=== PATIENT | female | born 1955 | race African-American/Black ===

== ENCOUNTER 2017-03-11 01:41 | Emergency (ER) | payer MEDICARE, MEDICAID ==
[~2017-03-11] VITALS: Ht 165.1 cm; Wt 100.0 kg
[~2017-03-11 01:41] MED LIST: ADLT ASA LOW81 MG PO; ALDACTONE25 MG PO; ALPRAZOLAM0.5 M1 PO; AMLODIPINE BESYL5 MG PO; AMOXICILLIN500 MG PO; ARTHROTEC 75 PO; ATIVAN0.5 MG PO; BENICAR20 MG PO; BUMETANIDE0.5 MG PO; DUONEB IN; FLEXERIL OR; FUROSEMIDE20 MG OR; GABAPENTIN100 MG PO; HYDROCHLOROT12.5 MG PO; HYDROCO/APAP1 TA9 PO; ISOSORB MONO10 MG OR; LISINOP/HCTZ1 TA1 OR; LISINOP/HCTZ1 TA2 PO; LISINOPRIL20 MG PO; MECLIZINE12.5 M1 PO; METFORMIN500 MG PO; METO50TA52 PO; METOPROL TAR50 MG OR; NAPROSYN500 MG OR; NITROSTAT0.4 MG SL; PRAVASTATIN40 MG PO; PREMARIN0.625 MG PO; PROAIR HFA IN; SINGULAIR PO; SINGULAIR10 MG PO; THEO-24300 MG PO; VENTOLIN HFA IN; VICODIN1 TAB PO; XANAX0.5 MG PO
[2017-03-11] MEDS ORDERED: NAPROSYN500 MG PO (03:01)
[2017-03-11 03:05] VITALS: BP 140/83
[2017-03-12] MEDS ORDERED: ESTRADIOL0.5 MG PO (09:43)
[2017-03-12] MEDS ORDERED: METRONIDAZOL0.75 % VA (09:43)
[2017-03-12] MEDS ORDERED: LOPRESSOR 550 MG/TAB PO (09:44)
[2017-03-12] MEDS ORDERED: ALPRAZOLAM1 MG PO (09:45)
[2017-03-12] MEDS ORDERED: HYDROMORPHON8 MG PO (09:46)
[2017-03-12] MEDS ORDERED: FLEXERIL5 M1 PO (09:47)
[2017-03-12] MEDS ORDERED: MELOXICAM7.5 MG PO (09:47)
[2017-03-12] MEDS ORDERED: DEMADEX20 MG PO (09:48)
[2017-03-12] MEDS ORDERED: OMEPRAZOLE20 M1 PO (09:49)
[2017-03-12] MEDS ORDERED: DICLOFENAC SODI75 M1 PO (10:05)
[2017-03-12] MEDS ORDERED: THEOCHRON PO (10:06)
[2017-03-12] MEDS ORDERED: SYMBICORT1 AE1 IN (10:07)
== END 2017-03-11 03:15 | disposition home or self-care (01) ==
LOC: ED 01:41
DX: S83.92XA Sprain of unspecified site of left knee, initial encounter (principal); S93.402A Sprain of unspecified ligament of left ankle, initial encounter; W17.2XXA Fall into hole, initial encounter; X50.1XXA Overexertion from prolonged static or awkward postures, initial encounter; Y93.89 Activity, other specified; Y92.481 Parking lot as the place of occurrence of the external cause

== ENCOUNTER 2017-03-12 08:59 | Emergency (ER) | payer MEDICARE, MEDICAID ==
[~2017-03-12] VITALS: Ht 165.1 cm; Wt 105.0 kg
[~2017-03-12 08:59] MED LIST changes: +NAPROSYN500 MG PO
[2017-03-12] MEDS ORDERED: METRONIDAZOL0.75 % VA (09:43)
[2017-03-12] MEDS ORDERED: ESTRADIOL0.5 MG PO (09:43)
[2017-03-12] MEDS ORDERED: LOPRESSOR 550 MG/TAB PO (09:44)
[2017-03-12] MEDS ORDERED: ALPRAZOLAM1 MG PO (09:45)
[2017-03-12] MEDS ORDERED: HYDROMORPHON8 MG PO (09:46)
[2017-03-12] MEDS ORDERED: MELOXICAM7.5 MG PO (09:47)
[2017-03-12] MEDS ORDERED: FLEXERIL5 M1 PO (09:47)
[2017-03-12] MEDS ORDERED: DEMADEX20 MG PO (09:48)
[2017-03-12] MEDS ORDERED: OMEPRAZOLE20 M1 PO (09:49)
[2017-03-12 10:00] VITALS: BP 135/76
[2017-03-12] MEDS ORDERED: DICLOFENAC SODI75 M1 PO (10:05)
[2017-03-12] MEDS ORDERED: THEOCHRON PO (10:06)
[2017-03-12] MEDS ORDERED: SYMBICORT1 AE1 IN (10:07)
== END 2017-03-12 10:00 | disposition home or self-care (01) ==
LOC: ED 08:59
DX: M54.42 Lumbago with sciatica, left side (principal); S83.92XA Sprain of unspecified site of left knee, initial encounter; W01.0XXA Fall on same level from slipping, tripping and stumbling without subsequent striking against object, initial encounter; Y93.89 Activity, other specified; Y92.511 Restaurant or cafe as the place of occurrence of the external cause

== ENCOUNTER 2017-07-04 20:00 | Emergency (ER) | payer OTHER, MEDICARE, MEDICAID ==
[~2017-07-04] VITALS: Ht 165.1 cm; Wt 102.0 kg
[~2017-07-04 20:00] MED LIST changes: +ALPRAZOLAM1 MG PO; +DEMADEX20 MG PO; +DICLOFENAC SODI75 M1 PO; +ESTRADIOL0.5 MG PO; +FLEXERIL5 M1 PO; +HYDROMORPHON8 MG PO; +LOPRESSOR 550 MG/TAB PO; +MELOXICAM7.5 MG PO; +METRONIDAZOL0.75 % VA; +OMEPRAZOLE20 M1 PO; +SYMBICORT1 AE1 IN; +THEOCHRON PO
[2017-07-04] MEDS ORDERED: ULTRAM50 M1 PO (21:37)
[2017-07-04] MEDS ORDERED: FLEXERIL PO (21:37)
[2017-07-04 21:45] VITALS: BP 169/90
== END 2017-07-04 21:45 | disposition home or self-care (01) | DRG 552 ==
LOC: ED 20:00
DX: S16.1XXA Strain of muscle, fascia and tendon at neck level, initial encounter (principal); I10 Essential (primary) hypertension; S33.5XXA Sprain of ligaments of lumbar spine, initial encounter; R51 Headache; V49.49XA Driver injured in collision with other motor vehicles in traffic accident, initial encounter; Y92.414 Local residential or business street as the place of occurrence of the external cause

== ENCOUNTER 2018-02-27 09:29 | Emergency (ER) | payer MEDICARE, MEDICAID ==
[~2018-02-27] VITALS: Ht 165.1 cm; Wt 94.1 kg
[~2018-02-27 09:29] MED LIST changes: +FLEXERIL PO; +ULTRAM50 M1 PO
[2018-02-27] MEDS ORDERED: NAPROXEN DR500 MG PO (10:01)
[2018-02-27] MEDS ORDERED: FLEXERIL PO (10:01)
[2018-02-27 10:18] VITALS: BP 170/93
== END 2018-02-27 10:24 | disposition home or self-care (01) ==
LOC: ED 09:29
DX: M62.830 Muscle spasm of back (principal); I10 Essential (primary) hypertension; J45.909 Unspecified asthma, uncomplicated

== ENCOUNTER 2019-02-22 20:17 | Emergency (ER) | payer MEDICARE, MEDICAID ==
[~2019-02-22] VITALS: Ht 165.1 cm; Wt 104.4 kg
[~2019-02-22 20:17] MED LIST changes: +NAPROXEN DR500 MG PO
[2019-02-22] MEDS ORDERED: AMLODIPINE10 MG PO (20:43)
[2019-02-22] MEDS ORDERED: LISINOPRIL40 MG PO (20:44)
[2019-02-22] MEDS ORDERED: ESTRADIOL0.5 MG PO (20:44)
[2019-02-22] MEDS ORDERED: COMBIVENT RESPIMAT IN (20:45)
[2019-02-22] MEDS ORDERED: MONTELUKAST SOD10 MG PO (20:45)
[2019-02-22] MEDS ORDERED: HYDROMORPHON8 MG PO (20:46)
[2019-02-22 20:50] VITALS: BP 151/95
== END 2019-02-22 20:50 | disposition home or self-care (01) ==
LOC: ED 20:17
DX: T17.228A Food in pharynx causing other injury, initial encounter (principal); I10 Essential (primary) hypertension; X58.XXXA Exposure to other specified factors, initial encounter

== ENCOUNTER 2019-03-03 10:40 | Emergency (ER) | payer MEDICARE, MEDICAID ==
[~2019-03-03] VITALS: Ht 165.1 cm; Wt 90.0 kg
[~2019-03-03 10:40] MED LIST changes: +AMLODIPINE10 MG PO; +COMBIVENT RESPIMAT IN; +LISINOPRIL40 MG PO; +MONTELUKAST SOD10 MG PO
[2019-03-03] MEDS ORDERED: MEDDOSEPAK PO (11:44)
[2019-03-03 11:46] VITALS: BP 156/90
== END 2019-03-03 11:50 | disposition home or self-care (01) ==
LOC: ED 10:40
DX: M54.5 Low back pain (principal); G89.29 Other chronic pain; I10 Essential (primary) hypertension; Z79.891 Long term (current) use of opiate analgesic

== ENCOUNTER 2020-04-24 13:42 | Emergency (ER) | payer OTHER, MEDICARE, MEDICAID ==
[~2020-04-24] VITALS: Ht 165.1 cm; Wt 95.5 kg
[~2020-04-24 13:42] MED LIST changes: +MEDDOSEPAK PO
[2020-04-24 15:03] LABS: HEMATOCRIT 42.3 % (37.0-47.0); HEMOGLOBIN 12.9 g/dl (12.0-16.0); IMMATURE GRANULOCYTES 0.5 % (0.0-5.0); MEAN CELL VOLUME 88.9 fL CALC (80.0-100.0); MEAN CORPUSCULAR HGB 27.1 pG CALC (26.0-32.0); MEAN CORPUSCULAR HGB CONC 30.5 g/dL CAL (32.0-36.0); NEUT# 5.03 thou/uL (2.00-7.15); RED BLOOD COUNT 4.76 mill/uL (4.20-5.60); RED CELL DISTRI WIDTH 14.5 % (11.5-15.5)
[2020-04-24 15:05] LABS: ALKALINE PHOSPHATASE 146 u/l (38-126); ANION GAP 9 (6-22 (CALC)); BILIRUBIN, TOTAL 0.5 mg/dL (0.0-1.4); BUN 12 mg/dL (8-23); BUN/CREATININE RATIO 14 (12-20 (CALC)); CARBON DIOXIDE 24 mmol/l (22-30); CHLORIDE 106 mmol/l (95-108); CREATININE 0.8 mg/dL (0.5-1.0); GFR > 60 ML/MIN (>=60 (CALC)); GFR FOR AFR.AMER. > 60 ML/MIN (>=60 (CALC)); LIPASE 33 u/l (23-300); POTASSIUM 4.1 mmol/l (3.5-5.1); SGOT/AST 25 u/l (9-36); SODIUM 134 mmol/l (137-146); TOTAL PROTEIN 7.7 g/dL (6.3-8.2)
[2020-04-24 16:26] VITALS: BP 179/107
== END 2020-04-24 16:21 | disposition home or self-care (01) | DRG 552 ==
LOC: ED 13:42
PROVIDERS: Family Medicine
DX: M54.2 Cervicalgia (principal); M54.5 Low back pain; M54.6 Pain in thoracic spine; I10 Essential (primary) hypertension; J45.909 Unspecified asthma, uncomplicated; V53.5XXA Driver of pick-up truck or van injured in collision with car, pick-up truck or van in traffic accident, initial encounter

== ENCOUNTER 2021-03-29 10:23 | Emergency (ER) | payer MEDICARE, MEDICAID ==
[~2021-03-29] VITALS: Ht 165.1 cm; Wt 119.1 kg
[~2021-03-29 10:23] MED LIST changes: -DUONEB IN; +IPRATROPIU0.5 MG/3 M IN
[2021-03-29] MEDS ORDERED: AMLODIPINE BESY10 MG PO (11:40)
[2021-03-29] MEDS ORDERED: OLMESARTAN MEDO40 MG PO (11:41)
[2021-03-29] MEDS ORDERED: BACLOFEN20 MG PO (11:41)
[2021-03-29] MEDS ORDERED: GYNODIOL0.5 MG PO (11:42)
[2021-03-29] MEDS ORDERED: ROSUVASTATIN CA20 MG PO (11:43)
[2021-03-29] MEDS ORDERED: DICLOFENAC SODI75 M1 PO (11:44)
[2021-03-29] MEDS ORDERED: DEMADEX20 MG PO (11:45)
[2021-03-29] MEDS ORDERED: THEOPHYLLINE E300 MG PO (11:45)
[2021-03-29] MEDS ORDERED: LATANOPROST0.005 % OU (11:45)
[2021-03-29 11:50] VITALS: BP 144/74
[2021-03-29] MEDS ORDERED: XANAX0.25 MG PO (11:50)
== END 2021-03-29 11:50 | disposition home or self-care (01) ==
LOC: ED 10:23
DX: F41.9 Anxiety disorder, unspecified (principal); I10 Essential (primary) hypertension; J45.909 Unspecified asthma, uncomplicated

== ENCOUNTER 2023-04-15 17:02 | Emergency (ER) | payer MEDICARE, OTHER ==
[~2023-04-15] VITALS: Ht 165.1 cm; Wt 103.6 kg
[~2023-04-15 17:02] MED LIST changes: +AMLODIPINE BESY10 MG PO; +BACLOFEN20 MG PO; +GYNODIOL0.5 MG PO; +LATANOPROST0.005 % OU; +OLMESARTAN MEDO40 MG PO; +ROSUVASTATIN CA20 MG PO; +THEOPHYLLINE E300 MG PO; +XANAX0.25 MG PO
[2023-04-15] MEDS ORDERED: ZYRTEC10 MG PO (20:38)
[2023-04-15 20:41] VITALS: BP 160/82
== END 2023-04-15 20:50 | disposition home or self-care (01) ==
LOC: ED 17:02
DX: J45.909 Unspecified asthma, uncomplicated (principal); I10 Essential (primary) hypertension